=== PATIENT | female | born 1955 | race Caucasian/White ===

== ENCOUNTER → 2016-11-22 | Outpatient (CLI) | payer OTHER ==
[~2016-11-22] VITALS: Ht 175.3 cm; Wt 102.8 kg
[~2016-11-22] MED LIST: ACIPHEX 20 MG T20 MG PO; ALIGN4 MG PO; CYMBALTA60 MG PO; DEXILANT60 MG PO; DOXYCYCLINE HYC20 MG PO; GLUCOPHAGE XR500 M1 PO; HYDROCODON-ACE1 EAC1 PO; HYDROCODON-ACE1 EAC8 PO; LOVASTAT20 PO; NEXIUM40 MG PO; NORCO 10-325 T1 EACH PO; NORCO 7.5-3251 EACH PO; OMEPRAZOLE40 MG PO; RELAFEN500 MG PO; THEO-24400 MG PO; TRIAMTERENE-HC1 EAC2 PO; TRIAMTERENE/HCT1 CA1 PO; VICODIN 5-5001 EACH PO
--- NOTE | ~2016-11-22 | HPC ---
[facility] [place] [address] PAIN MANAGEMENT CONSULTATION Name: MARCEL SHEN Room #: REG Alton Mcgregor.#: [id number] Admission: 11/22/16 Attend Phys: Thomas Casanova DO Discharge: Date of : 53 Report #: [id number] THIS REPORT FOR: //name// CC: Dee Casanova The patient is a very pleasant 61-year-old female being treated for lumbar radiculopathy, axial back pain requiring complex medication management. She has been stable on baseline narcotic medications, fairly infrequent p.r.n. use of hydrocodone 7.5/325. Last seen in the pain clinic on 09/19/2016, for medication renewal. She prior had a single lumbar epidural injection back in December 2015. Prior to that, she had a single epidural injection back in May 2015. She returns to pain clinic today noting that her right lumbar radicular pain has recurred, it is in the right L4 pattern. We reviewed her MRI findings noting lumbar radiculopathy, neural foraminal stenosis at multiple levels, most significant of the right at L3-L4 and left L5-S1. ASSESSMENT: Symptomatic lumbar radiculopathy by clinical exam and history. RECOMMENDATION: Lumbar epidural injection under fluoroscopy today. Continue current medications unchanged. Follow up as needed. PROCEDURE: Lumbar epidural injection under fluoroscopy. PROCEDURE NOTE: After both written and informed consent to include risk of spinal cord damage, increased pain, weakness and dural puncture, the patient was taken to the fluoroscopy suite, placed in the prone position. After sterile prep and drape, a skin wheal with lidocaine was raised. A 22-gauge epidural Tuohy needle was inserted in the midline at L4-L5 with good loss to resistance. Negative aspiration for cerebrospinal fluid or blood was noted. Then 1 mL of Omnipaque under biplanar fluoroscopy showed good spread within the epidural space. This was followed with 80 mg of triamcinolone plus 1 mL of 1.5% preservative-free Xylocaine, 0.5 mL Xylocaine was then injected to flush the needle; it was removed. The patient was monitored for an appropriate period of time and discharged in good and stable condition. By: [id number] Thomas Casanova DO /nt
[2016-11-22 10:53] VITALS: BP 119/70
== END ==
LOC: PAIN 11-15 07:13
DX: M54.16 Radiculopathy, lumbar region (principal)

== ENCOUNTER → 2016-12-19 | Outpatient (CLI) | payer OTHER ==
[~2016-12-19] VITALS: Ht 175.3 cm; Wt 104.4 kg
--- NOTE | ~2016-12-19 | HPC ---
[facility] [place] [address] PAIN MANAGEMENT CONSULTATION Name: MARCEL SHEN Room #: [facility] [id number] Admission: 12/19/16 Attend Phys: Thomas Casanova DO Discharge: Date of : 53 Report #: [id number] THIS REPORT FOR: //name// CC: Dee Casanova The patient is a 61-year-old female last seen in the pain clinic 03/24/2017. We did an epidural injection at that time. The patient returns to pain clinic today noting overall incremental improvement of baseline pain, notes the injection did provide 50% relief, though typically she has had better relief for longer periods of time. She notes pain has recurred at the 2/10 presently, but diffuse tenderness across the low back and right leg. Physical exam is relatively unchanged from last visit. ASSESSMENT: Symptomatic lumbar radiculopathy by clinical exam and history. RECOMMENDATIONS: 1. Repeat epidural injection under fluoroscopy today. 2. We talked about therapeutic options, may benefit from a spinal cord stimulator. I would want to get newer MRI. Her last MRI is somewhat dated from August 2012. We will also want to get a surgical opinion to see if there is any surgically correctable pathology before moving forward with SCS. Marcel does incidentally note some pain in the left knee with some with trace ballotable edema. I referred her to [facility]. ASSESSMENT: Symptomatic lumbar radiculopathy. PROCEDURE: Lumbar epidural injection under fluoroscopy. PROCEDURE NOTE: After both written and informed consent to include risk of spinal cord damage, increased pain, weakness and dural puncture, the patient was taken to the fluoroscopy suite, placed in the prone position. After sterile prep and drape, a skin wheal with lidocaine was raised. A 22-gauge epidural Tuohy needle was inserted in the midline at L4-5 with good loss to resistance. Negative aspiration for cerebrospinal fluid or blood was noted. Then 1 mL of Omnipaque under biplanar fluoroscopy showed good spread within the epidural space. This was followed with 80 mg of triamcinolone plus 1 mL of 1.5% preservative-free Xylocaine, 0.5 mL Xylocaine was then injected to flush the needle; it was removed. The patient was monitored for an appropriate period of time and discharged in good and stable condition. <ELECTRONICALLY SIGNED> By: Thomas Casanova DO 12/20/16 1308 [id number] Thomas Casanova DO /nt
[2016-12-19 11:21] VITALS: BP 147/78
== END | disposition home or self-care (01) ==
LOC: PAIN 07:27
DX: M54.16 Radiculopathy, lumbar region (principal); G89.29 Other chronic pain

== ENCOUNTER → 2017-04-14 | Outpatient (CLI) | payer OTHER | LOC: PAIN 07:10 | DX: M54.16 Radiculopathy, lumbar region (principal) ==

== ENCOUNTER → 2017-06-13 | Outpatient (CLI) | payer OTHER ==
[~2017-06-13] VITALS: Ht 175.3 cm; Wt 102.1 kg
[~2017-06-13] MED LIST changes: +UNISOM50 MG PO; +ZANTAC 150MG T150 M1 PO
--- NOTE | ~2017-06-13 | HPC ---
[facility] [place] [address] PAIN MANAGEMENT CONSULTATION Name: MARCEL SHEN Room #: REG [facility] [id number] Admission: 06/13/17 Attend Phys: hTomas Casanova DO Discharge: Date of : 53 Report #: [id number] THIS REPORT FOR: //name// CC: Dee Casanova HISTORY OF PRESENT ILLNESS: The patient is a 62-year-old female well known to the pain clinic, typically treated for lumbar radiculopathy status post decompressive laminectomy. He has had lumbar epidural injections in November or December with greater than 60% improvement in her pain for a number of months. Uses rare hydrocodone 7.5/325, given 75 tablets back in March, still has about 30 tablets left. She returns to pain clinic today noting pain has recurred in the right low back. She has been lifting and caring for her grandchild. Rates pain at 3 on a VAS today, but it has become problematic to the point that it interferes with function and gets significantly worse with activity. She has numbness and tingling in the right leg. Some paresthesias down into the foot. PHYSICAL EXAMINATION: Shows a 62-year-old female, BMI is 33.2 kilograms per meter squared. Vital signs stable as noted in the EMR. Rises from chair using armrest. Modestly positive straight leg raise on the right, antalgic gait, slight decreased right hip flexion strength. We reviewed the MRI findings somewhat dated from 2012, noting neural foraminal stenosis at multiple levels, most significant on the left at L5-S1, on the right at L3-L4. Status post postoperative changes at L3-L4. ASSESSMENT: Symptomatic lumbar radiculopathy by clinical exam and history. RECOMMENDATIONS: Epidural injection under fluoroscopy today; renew hydrocodone 5/325, limit 75 tablets over the counter anti-inflammatories. Follow up simply as needed. PROCEDURE: Lumbar epidural injection under fluoroscopy. PROCEDURE NOTE: After both written and informed consent to include risk of spinal cord damage, increased pain, weakness and dural puncture, the patient was taken to the fluoroscopy suite, placed in the prone position. After sterile prep and drape, a skin wheal with lidocaine was raised. A 22-gauge epidural Tuohy needle was inserted in the midline at L4-L5 with good loss to resistance. Negative aspiration for cerebrospinal fluid or blood was noted. Then 1 mL of Omnipaque under biplanar fluoroscopy showed good spread within the epidural space. This was followed with 80 mg of triamcinolone plus 1 mL of 1.5% preservative-free Xylocaine, 0.5 mL Xylocaine was then injected to flush the [address] [address] PAIN MANAGEMENT CONSULTATION Name: MARCEL SHEN Room #: REG HALI Kelly#: [id number] Admission: 06/13/17 Attend Phys: Thomas Casanova DO Discharge: Date of : 53 Report #: [id number] needle; it was removed. The patient was monitored for an appropriate period of time and discharged in good and stable condition. <ELECTRONICALLY SIGNED> By: Thomas Casanova DO 06/16/17 0929 [id number] Thomas Casanova DO /nt
[2017-06-13 14:07] VITALS: BP 124/86
== END ==
LOC: PAIN 10:37
DX: M54.16 Radiculopathy, lumbar region (principal); Z79.899 Other long term (current) drug therapy

== ENCOUNTER → 2017-07-17 | Outpatient (CLI) | payer OTHER ==
[~2017-07-17] VITALS: Ht 175.3 cm; Wt 103.8 kg
--- NOTE | ~2017-07-17 | HPC ---
[facility] [place] [address] PAIN MANAGEMENT CONSULTATION Name: MARCEL SHEN Room #: REG [facility]#: [id number] Admission: 07/17/17 Attend Phys: Thomas Casanova, DO Discharge: Date of : 53 Report #: [id number] THIS REPORT FOR: //name// CC: Dee Casanova The patient is a pleasant 62-year-old female, long known to the pain clinic, typically treated for lumbar radiculopathy, has had 3 lumbar epidural injections in November, December, and then injection on 06/13/2017. She uses hydrocodone 7.5/325 rarely, prescription given in March 2017, lasted through May, prescription 06/13/2017 for hydrocodone 7.5/325, dispense 75 tablets still has greater than 50% of the tablets left. She notes she was doing well after the epidural injections until she was cleaning house and cooking for Thanksgiving and putting on her Frandy decorations with a lot of bending and lifting, she has acute exacerbation of axial back pain. 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 She notes the pain is in the low back, left greater than right, does not have any radicular component. She does note the pain is significant to the point that it is interfering with function. It is 4 on a VAS at baseline, exacerbated with bending, standing, walking and lifting. PHYSICAL EXAMINATION: Shows a 62-year-old female, BMI is modestly elevated at 33.8 kg/m2. Vital signs are stable as noted in the EMR. Rises from chair using armrest. Lumbar flexion is good. Very tender over the SI joints. Lower extremity strength is symmetric. Straight leg raise is negative. Tenderness over the SI joints with positive Gaenslen's test, positive Lv test and positive distraction. Provocative test noted with pain bilaterally. MRI quite dated from 2012, notes postoperative changes of the lumbar spine with multilevel facet degenerative changes. ASSESSMENT: 1. Symptomatic lumbar radiculopathy, status post decompressive laminectomy by history, again doing well status post last epidural injection in May. 2. Acute exacerbation of sacroiliac mediated pain, lumbosacral spondylosis. RECOMMENDATION: 1. Continue physical therapy exercises, which the patient had received from the therapist some years ago. 2. Bilateral SI joint injection under fluoroscopy today. 3. Follow up simply as needed. PROCEDURE: Bilateral SI joint injection under fluoroscopy. PROCEDURE NOTE: After written and informed consent was obtained including risk of infection, nerve trauma, increased pain and weakness, the patient wishes to proceed. The patient was taken to the fluoroscopy suite, [place] [address] PAIN MANAGEMENT CONSULTATION Name: HERMELINDAMARCEL Room #: REG CL Leticia#: [id number] Admission: 07/17/17 Attend Phys: Thomas Casanova DO Discharge: Date of : 53 Report #: [id number] position. The sacroiliac joint was visualized using the C-arm, turned in an oblique fashion to align the joint. The skin overlying the area was cleansed with ChloraPrep. Skin wheal with Xylocaine was raised. A 22 gauge spinal needle was inserted into the inferior aspect of the joint. A low volume extension tubing was then attached to the needle after the stylet was removed. Negative aspiration was accomplished. A 1 mL of Omnipaque was injected which showed spread within the SI joint. 40 mg triamcinolone plus 2 mL of 0.5% preservative-free bupivacaine was injected into the joint. Needle was removed. Attention was then turned to the contralateral joint which was treated in an identical fashion. After both needles were removed the prep was washed off. Two Band-Aids were applied over the puncture sites. The patient was allowed to ambulate to the recovery room, monitored for an appropriate period of time, discharged in good and stable condition. <ELECTRONICALLY SIGNED> By: Thomas Casanova DO 07/21/17 0759 [id number] Thomas Casanova DO /nt
[2017-07-17 11:30] VITALS: BP 116/78
== END | disposition home or self-care (01) ==
LOC: PAIN 06:40
DX: M53.3 Sacrococcygeal disorders, not elsewhere classified (principal); G89.29 Other chronic pain; M47.897 Other spondylosis, lumbosacral region; Z79.891 Long term (current) use of opiate analgesic; Z98.890 Other specified postprocedural states; Z79.899 Other long term (current) drug therapy

== ENCOUNTER → 2018-08-14 | Outpatient (CLI) | payer OTHER, MEDICARE ==
[~2018-08-14] VITALS: Ht 177.8 cm; Wt 100.3 kg
--- NOTE | ~2018-08-14 | HPC ---
[facility] [place] [address] PAIN MANAGEMENT CONSULTATION Name: MARCEL SHEN Room #: REG [facility] [id number] Admission: 08/14/18 Attend Phys: Nik Yan MD Discharge: Date of : 53 Report #: [id number] THIS REPORT FOR: //name// CC: Dee Yan DATE OF SERVICE: 08/16/2018 CHIEF COMPLAINT: Here for an epidural injection. HISTORY: The patient is a 63-year-old female who has been followed in the pain clinic. As you may recall, she has a history of lumbar radicular pain. She returns today with complaints of pain and discomfort in the back with radiation down to her leg. She also has a history of left knee pain. She did have an injection in the left knee noted some benefit from that. She has had a right knee replacement. She has undergone epidural steroid injections in the past with greater than 50% benefit. She has also been treated for sacroiliac joint dysfunction with injections. Those were beneficial as well. At this point, she continues to have pain and discomfort in the anterior portion of her right leg and L3-L4 distribution. She would like to have an injection to help with that pain and discomfort. ALLERGIES: No known drug allergies. CURRENT MEDICATIONS: Hydrocodone 7.5 mg 1 p.o. b.i.d., Zanaflex 150 mg, omeprazole 40 mg, metformin 500 mg, triamterene/hydrochlorothiazide 37.5/25, lovastatin 20 mg, 40 mg total, Align 4 mg capsules. PAIN CLINIC ASSESSMENT/PQRS: 1. History of osteoarthritis. The patient has some arthritic changes involving her back as well as in her knees and has had a knee replacement on the right. Has some complaints of arthritic changes in her hands as well. She is not being treated for rheumatoid arthritis. 2. Height 5 feet 10 inches, weight 221 pounds, BMI is 31.7. 3. Vital signs: Blood pressure 136/88, pulse 82, respiratory rate 16, room air saturation 98%. 4. Pain intensity 08/27. 5. Fall risk. The patient has not fallen in the last 3 months. 6. Blood thinner. The patient is not on a blood thinning medication. 7. Hypertension. The patient is being treated for hypertension. 8. Opioids greater than 6 weeks. The patient received medication from one source, the pain clinic. 9. Risk assessment tool, low for opioid use. 10. Functional assessment tool 51/70. 11. Recreational drug use. The patient denies use of recreational drugs. 12. Tobacco: The patient has never smoked. [address] [address] PAIN MANAGEMENT CONSULTATION Name: MARCEL SHEN [facility] #[facility] [id number] Admission: 08/14/18 Attend Phys: Nik Yan MD Discharge: Date of : 53 Report #: [id number] 13. Alcohol. The patient drinks alcoholic beverages on occasion. PHYSICAL EXAMINATION: GENERAL: The patient is a well-developed, well-nourished white female. Appears her stated age. She is alert and oriented x 3. Her affect is appropriate. Speech is fluent. HEENT: Normocephalic, atraumatic. Extraocular muscles intact. Sclerae nonicteric. Mucous membranes moist. NECK: Without adenopathy or JVD. Upper extremity muscle strength is judged to be 5/5 for the major muscle groups without any neurologic deficits. HEART: Regular rate. S1, S2. MUSCULOSKELETAL: Without significant scoliosis, kyphosis or lordosis. The patient does have some pain and discomfort involving her left knee. Has some low back pain with pain that is radiating down the right side of her leg in the L3-4/L2-3 dermatomal distribution. The patient is walking with a somewhat antalgic gait. IMPRESSION: Right L3-L4/L2-L3 radiculopathy. RECOMMENDATIONS: We discussed treatment options with the patient. Risks and benefits of an epidural steroid injection were again discussed. Possible complications of the procedure, which could include but are not limited to infection, worsening of pain, no improvement in pain, nerve damage with paralysis, spinal headache were discussed. The patient feels that she would like to proceed with an injection. She has gleaned good relief in the past. She would like to proceed. PROCEDURE NOTE: The patient was taken to the procedure area. She was assisted in getting on the examination table. Her pillow was placed on her abdomen to bolster improved positioning. Fluoroscopy using anterior, posterior as well as lateral viewing were implemented. The patient's back was sterilely prepped in the L3-L4 area. A 25-gauge needle was then used to inject local anesthetic. A 17-gauge Tuohy with loss of resistance technique was used to gain access to the epidural space. There was no CSF, heme or paresthesia. A total of 80 mg Depo-Medrol, 40 mg triamcinolone and 2 mL of 0.25% bupivacaine was injected. The patient tolerated the procedure well. There were no complications. Total of 10 seconds fluoroscopy time was used. Follow up in the future as needed. She will continue with her current medical regimen of [place] 7.5 mg 1 p.o. b.i.d. as needed. We would like to thank you for letting us participate in her care. We hope she continues to improve. By: [id number] Nik Yan MD /alejandra
[2018-08-14 08:32] VITALS: BP 136/88
--- NOTE | 2018-08-14 08:36 | NUR ---
Pain Clinic Assessment: 1. History of Osteoarthritis: SPINE HANDS Right Lower Extremity Left Lower Extremity History of Rheumatoid Arthritis: 2. Height: 5 ft. 10 in. 177.8 cm. Weight: 221.2 lb. oz. 100.336 kg. Patient's BMI: 31.7 3. Vital Signs: BP: 136/88 Pulse: 82 Resp: 16 Temp: 02 Sat: 98 ECG Mon: 4. Pain Intensity: 1 5. Fall Risk: Dizziness: N Needs help standing or walking: N Fallen in the last 3 months: N Fall risk comments: 6. Patient on Blood Thinner: None 7. History of Hypertension: N 8. Opioid Therapy greater than 6 weeks: Y Opiate Contract Signed: 09/19/15 9. Risk Assessment Tool Provided: Brenda/CHUN 10. Functional Assessment Tool: 11. Recreational Drug Use: Never Drug Type: Tobacco Use: Never Smoker Tobacco Type: Amount or Packs/day: How Many Years: Alcohol Use: Yes Frequency: Special Occasions Quant:
== END | disposition home or self-care (01) ==
LOC: PAIN 07:39
DX: M54.16 Radiculopathy, lumbar region (principal); M17.0 Bilateral primary osteoarthritis of knee; I10 Essential (primary) hypertension; Z96.652 Presence of left artificial knee joint; Z98.890 Other specified postprocedural states; Z79.899 Other long term (current) drug therapy; Z79.891 Long term (current) use of opiate analgesic

== ENCOUNTER → 2018-11-11 | Outpatient (CLI) | payer OTHER, MEDICARE ==
[~2018-11-11] VITALS: Ht 175.3 cm; Wt 101.6 kg
[~2018-11-11] MED LIST changes: +MEDROLDOSEPACK PO
--- NOTE | ~2018-11-11 | HPC ---
[facility] [place] [address] PAIN MANAGEMENT CONSULTATION Name: MARCEL SHEN Room #: REG [facility] [id number] Admission: 11/11/18 ������������������ Attend Phys: Nik Yan MD Discharge: ������������������ Date of : 53 Report #: [id number] THIS REPORT FOR: //name// CC: Dee Yan DATE OF SERVICE: 11/11/2018 CHIEF COMPLAINT: Low back pain that goes down into both buttocks and down into both legs and thigh. "I would like to get an injection." HISTORY: The patient is a 63-year-old female who has been seen in the Pain Clinic because of chronic pain. She has undergone epidural steroid injections. She returns today with pain that is radiating down into her legs. She has had a history of left knee pain. She has undergone the injections in her knees and found those beneficial. She has had a right knee replacement. At this juncture, she is having greater pain in her back. She has received greater than 50% benefit with epidural steroid injections in the past. She also has a history of sacroiliac joint dysfunction. She would like to proceed with an injection and has returned today for the treatment. ALLERGIES: No known drug allergies. CURRENT MEDICATIONS: Hydrocodone 7.5 mg 1 p.o. b.i.d., Zanaflex 150 mg, omeprazole 40 mg, metformin 500 mg, triamterene/hydrochlorothiazide 37.5/25, lovastatin 20 mg, 40 mg total, and Align 4 mg, PAIN CLINIC ASSESSMENT/PQRS: 1. The patient has some arthritic changes involving her back as well as her knees and has had knee replacement on the right. The patient has some complaints of arthritic changes in her hands. She has not been treated for rheumatoid arthritis. 2. Height 5 feet 10 inches, weight is 224 pounds, BMI is 33.1. 3. Vital Signs: Blood pressure 128/74, pulse 71, respiratory rate 18, room air saturation 100%. 4. Pain intensity 3-/10 after a fall risk. The patient has not fallen in the last 3 months. 5. Blood thinner. The patient is not on a blood thinning medication. 6. Hypertension. The patient has not been treated for hypertension. 7. Opioids greater than 6 weeks. The patient is being treated with opioid medication. 8. Risk assessment tool, low for opioid use. 9. Functional assessment tool 51/70. 10. Recreational drug use. The patient denies use of recreational drugs. 11. Tobacco: The patient never smoked. 12. Alcohol: The patient drinks 1 alcoholic beverage on occasion. [address] [address] PAIN MANAGEMENT CONSULTATION Name: HERMELINDAMARCEL Room #: REG [facility]..#: [id number] Admission: 11/11/18 ������������������ Attend Phys: Nik Yan MD Discharge: ������������������ Date of : 53 Report #: [id number] PHYSICAL EXAMINATION: GENERAL: The patient is a well-developed, well-nourished white female. Appears her stated age. She is alert and oriented x 3. Her affect is appropriate. Speech is fluent. HEENT: Normocephalic, atraumatic. Extraocular eye muscles are intact. Sclerae nonicteric. Mucous membranes are moist. NECK: Without adenopathy or JVD. HEART: Regular rate. S1, S2. MUSCULOSKELETAL: Without significant scoliosis, kyphosis or lordosis. The patient does have some pain and discomfort in her left knee. Has pain in the lower portion of her back. The pain is radiating down to the right side of her leg in the L4-L5 dermatomal distribution and has had some in the L1-L2 dermatomal distribution. She notes that walking is somewhat problematic. She walks with an antalgic gait. IMPRESSION: L3-L4 and L2-L3 radiculopathy. RECOMMENDATIONS: We will proceed with an epidural steroid injection at the L3-L4 interspace on the right side. The patient complains of pain that is most problematic today at this level. PROCEDURE NOTE: The patient was taken to the procedure area. She was assisted in getting on the examination table. We already discussed the risks and benefits of the procedure. She would like to proceed. PROCEDURE NOTE: The patient was placed in the prone position. Fluoroscopy was used to identify the L3-L4 interspace. Her back had been sterilely prepped with Betadine and infiltrated with 0.25% bupivacaine using a right paramedian approach. A 0.25% bupivacaine was infiltrated at that juncture. At the L3-L4 space, a 17-gauge Tuohy with loss of resistance technique using a paramedian approach was undertaken. A total of 80 mg Depo-Medrol, 40 mg triamcinolone and 2 mL of 0.25% bupivacaine was injected. The patient tolerated the procedure well. There were no complications. Total of ____ seconds fluoroscopy time was used. The patient's pain decreased to 3 at the time of discharge. She will follow up in the future as needed. We would like to thank you for letting us participate in her care. We hope she continues to improve. ��������������������������������������������� ���������������������������������������� By: ��������������������������������������������� [id number] Nik Yan MD /nt
[2018-11-11 09:10] VITALS: BP 128/74
--- NOTE | 2018-11-11 09:24 | NUR ---
Pain Clinic Assessment: 1. History of Osteoarthritis: SPINE HANDS Right Lower Extremity Left Lower Extremity History of Rheumatoid Arthritis: 2. Height: 5 ft. 9 in. 175.3 cm. Weight: 224.0 lb. oz. 101.606 kg. Patient's BMI: 33.1 3. Vital Signs: BP: 128/74 Pulse: 71 Resp: 18 Temp: 02 Sat: 100 ECG Mon: 4. Pain Intensity: 3-4 5. Fall Risk: Dizziness: N Needs help standing or walking: N Fallen in the last 3 months: Y Fall risk comments: 6. Patient on Blood Thinner: None 7. History of Hypertension: N 8. Opioid Therapy greater than 6 weeks: Y Opiate Contract Signed: 09/19/15 9. Risk Assessment Tool Provided: Brenda/CHUN 10. Functional Assessment Tool: 11. Recreational Drug Use: Never Drug Type: Tobacco Use: Never Smoker Tobacco Type: Amount or Packs/day: How Many Years: Alcohol Use: Yes Frequency: Daily Quant: 1
== END | disposition home or self-care (01) ==
LOC: PAIN 06:47
DX: M54.16 Radiculopathy, lumbar region (principal); Z68.33 Body mass index [BMI] 33.0-33.9, adult; I10 Essential (primary) hypertension; F11.20 Opioid dependence, uncomplicated; Z79.899 Other long term (current) drug therapy

== ENCOUNTER → 2018-11-25 | Outpatient (CLI) | payer OTHER, MEDICARE ==
[~2018-11-25] VITALS: Ht 177.8 cm; Wt 99.5 kg
--- NOTE | ~2018-11-25 | HPC ---
[facility] [place] [address] PAIN MANAGEMENT CONSULTATION Name: MARCEL SHEN Room #: REG [facility] Meche.#: [id number] Admission: 11/25/18 ������������������ Attend Phys: Nik Yan MD Discharge: ������������������ Date of : 53 Report #: [id number] THIS REPORT FOR: //name// CC: Dee Yan DATE OF SERVICE: 11/25/2018 CHIEF COMPLAINT: Right low back pain. FOLLOWUP HISTORY: The patient is a 63-year-old female who has been seen in the pain clinic. She suffers from chronic pain. She has undergone epidural steroid injections in the past. She returns today indicating that her pain has been intense a few days ago. She now is having less pain and discomfort. She reports 6 days ago that her pain in the lower back area was quite problematic. She has noticed an improvement at this juncture. A few days ago was about an 8-9/10. Now, it is a 1/10. Still has some burning discomfort in her low back area with some numbness, tingling sensation. The back pain was exacerbated with bending, standing, walking and other activities. Feels that it improves with use of medications, changes of position such as lying down, use of ice packs and "getting off her feet." She feels that today things have improved. She was thinking that an injection might be helpful when she made the appointment. Feels now that things have calmed down somewhat. She is not sure that treatment is necessary today. ALLERGIES: No known drug allergies. MEDICATIONS: Hydrocodone 7.5 mg 1 p.o. b.i.d., Zanaflex 150 mg, omeprazole 40 mg, metformin 500 mg, triamterene/hydrochlorothiazide 37.5/25, lovastatin 20 mg, total of 40 mg daily and Align 4 mg. PAIN CLINIC ASSESSMENT AND PQRS: 1. The patient has some arthritic changes involving her back as well as in her knees. She has had knee replacement on the right. Some arthritic changes in her hands. She is not being treated for rheumatoid arthritis. 2. Height 5 feet 10 inches, weight 219 pounds, BMI is 31.5. 3. Vital signs: Blood pressure 124/79, pulse 65, respiratory rate 20, room air saturation 99%. 4. Pain intensity 08/27. 5. Fall risk. The patient has not fallen in the last 3 months. 6. Blood thinner. The patient is not on a blood thinning medication. 7. Hypertension. The patient is not being treated for hypertension. 8. Opioids greater than 6 weeks. The patient is being treated with opioid medications. 9. Risk assessment tool, low for opioid use. 10. Functional assessment tool 51/70. [address] [address] PAIN MANAGEMENT CONSULTATION Name: HERMELINDAMARCEL Room #: REG [facility]#: [id number] Admission: 11/25/18 ������������������ Attend Phys: Nik Yan MD Discharge: ������������������ Date of : 53 Report #: [id number] 11. Recreational drug use. The patient denies use of recreational drugs. 12. Tobacco: The patient has never smoked. 13. Alcohol. The patient drinks 1 alcoholic beverage on occasion. PHYSICAL EXAMINATION: GENERAL: The patient is a well-developed, well-nourished white female. Appears her stated age. She is alert and oriented x 3. Affect is appropriate. Speech is fluent. HEENT: Normocephalic, atraumatic. Extraocular eye muscles intact. Sclerae nonicteric. Mucous membranes are moist. NECK: Without adenopathy or JVD. HEART: Regular rate. S1, S2. MUSCULOSKELETAL: Without significant scoliosis, kyphosis or lordosis. The patient has had some pain and discomfort in her left knee. Has had some increased pain in her low back. This is improved at this juncture. History of L4-L5 dermatomal pain as well as L1-L2 dermatomal pain. Gait is not problematic today. IMPRESSION: 1. Improved back pain. Has had a history of L3-L4 and L2-L3 radicular pain. Overall, things have improved. 2. Hypertension. 3. Asthma. 4. Colon problems. 5. History of ulcers. RECOMMENDATIONS: We discussed treatment options with the patient. At this juncture, she feels that things are going reasonably well. The pain was quite problematic few days ago when she made the appointment. At this juncture, things have settled down. At this juncture, she will continue with her current medical regimen. She will call us if she has any concerns. We would like to thank you for letting us participate in her care. We hope she continues to do well as time goes on. ��������������������������������������������� ���������������������������������������� By: ��������������������������������������������� [id number] Nik Yan MD /[facility]
[2018-11-25 13:32] VITALS: BP 124/79
--- NOTE | 2018-11-25 13:52 | NUR ---
Pain Clinic Assessment: 1. History of Osteoarthritis: SPINE HANDS Right Lower Extremity Left Lower Extremity History of Rheumatoid Arthritis: Not Applicable 2. Height: 5 ft. 10 in. 177.8 cm. Weight: 219.4 lb. oz. 99.519 kg. Patient's BMI: 31.5 3. Vital Signs: BP: 124/79 Pulse: 65 Resp: 20 Temp: 02 Sat: 99 ECG Mon: 4. Pain Intensity: 1 5. Fall Risk: Dizziness: N Needs help standing or walking: N Fallen in the last 3 months: N Fall risk comments: 6. Patient on Blood Thinner: None 7. History of Hypertension: N 8. Opioid Therapy greater than 6 weeks: Y Opiate Contract Signed: 09/19/15 9. Risk Assessment Tool Provided: Brenda/CHUN 10. Functional Assessment Tool: 11. Recreational Drug Use: Never Drug Type: Tobacco Use: Never Smoker Tobacco Type: Amount or Packs/day: How Many Years: Alcohol Use: Yes Frequency: Weekly Quant: 1-2
== END ==
LOC: PAIN 07:15
DX: M54.5 Low back pain (principal); G89.29 Other chronic pain; I10 Essential (primary) hypertension; J45.909 Unspecified asthma, uncomplicated; K63.9 Disease of intestine, unspecified; Z79.899 Other long term (current) drug therapy

== ENCOUNTER → 2018-12-30 | Outpatient (CLI) | payer OTHER, MEDICARE ==
[~2018-12-30] VITALS: Ht 177.8 cm; Wt 100.3 kg
--- NOTE | ~2018-12-30 | HPC ---
[facility] [address] [place] [address] PAIN MANAGEMENT CONSULTATION Name: MARCEL SHEN Room #: REG [facility].#: [id number] Admission: 12/30/18 ������������������ Attend Phys: Nik Yan MD Discharge: ������������������ Date of : 53 Report #: [id number] THIS REPORT FOR: //name// CC: Dee Yan DATE OF SERVICE: 12/30/2018 FOLLOWUP COMPLAINT: "I am having a lot of pain on my left hip. I am unable to lie on it." HISTORY: The patient is a 63-year-old female who has been seen in the pain clinic. As you recall, she has a history of lumbar radiculopathy. She has undergone epidural steroid injections in the past. These injections have been beneficial. She has a different complaint today. She is still having some pain that radiates down into her leg. She is having pain on her left hip. She is unable to lay more than a few minutes on her left side. She states that she was tossing and turning over the past few nights. She is unable to get more than a couple of hours sleep because of the intensity of the pain. She denies any trauma to the left side. She notes that it is quite tender to palpation as well as touch. She feels that the pain is really quite problematic and she would like to undergo treatment. She has had sacroiliac joint problems and pain. Does not feel that this pain is similar to that discomfort. ALLERGIES: No known drug allergies. CURRENT MEDICATIONS: Hydrocodone 7.5 mg 1 p.o. b.i.d., Zantac 150 mg daily, omeprazole 40 mg daily, metformin 500 mg, triamterene/hydrochlorothiazide, 37.5 mg/25, losartan 40 mg daily, and Align 4 mg. PAIN CLINIC ASSESSMENT/PQRS: 1. History of osteoarthritis. The patient has some arthritic changes involving her back as well as has had knee replacement on the right. Has some arthritic changes in her hands. She is not being treated for rheumatoid arthritis. 2. Height 5 feet 10 inches, weight 221 pounds, BMI is 31.7. 3. Vital signs: Blood pressure 116/67, pulse 71, respiratory rate 16, room air saturation 97%. 4. Pain intensity 12/25. 5. Fall risk. The patient has not fallen in the last 3 months. 6. Blood thinner. The patient is not on a blood thinning medication. 7. Hypertension. The patient is not being treated for hypertension. 8. Opioids greater than 6 weeks. The patient has received her medications from the pain clinic on a monthly basis. 9. Risk assessment tool, low for opioid use. 10. Functional assessment tool 51/70. [place] [address] PAIN MANAGEMENT CONSULTATION Name: MARCEL SHEN Room #: REG CL Leticia#: [id number] Admission: 12/30/18 ������������������ Attend Phys: Nik Yan MD Discharge: ������������������ Date of : 53 Report #: [id number] 11. Recreational drug use. The patient denies use of recreational drugs. 12. Tobacco: The patient has never smoked. 13. Alcohol. The patient drinks on occasion. PHYSICAL EXAMINATION: GENERAL: The patient is a well-developed, well-nourished white female. Appears her stated age. She is alert and oriented x 3. Her affect is appropriate. Speech is fluent. HEENT: Normocephalic, atraumatic. Extraocular eye muscles intact. Sclerae nonicteric. Mucous membranes moist. NECK: Without adenopathy or JVD. HEART: Regular rate. S1, S2. MUSCULOSKELETAL: Without significant scoliosis, kyphosis or lordosis. EXTREMITIES: Upper extremity muscle strength judged to be 5/5 for the major muscle groups in the upper extremity. Lower extremity, the patient has some pain involving her left knee. Has pain that is radiating down into her back and down into the left leg. The patient has pain on the left hip. Palpation in the area of the left greater trochanteric bursa causes a reproduction of her pain and discomfort. Lying on her left side is difficult for more than a few minutes because of the pain and discomfort. IMPRESSION: 1. Left greater trochanteric bursitis. 2. History of decompressive laminectomy. 3. History of sacroiliac joint dysfunction. 4. Diabetes. 5. Hypertension. RECOMMENDATIONS: We discussed treatment options with the patient. Risks and benefits of a greater trochanteric injection were discussed. Possible complications of the procedure, which could include infection, worsening of pain, no improvement in pain, nerve damage, bleeding were discussed and the patient elects to proceed. PROCEDURE NOTE: The patient was taken to the procedure area. She was then assisted in getting on the examination table. She was placed in the right lateral decubitus position. Her left hip was in the position. Palpation in the trochanteric area near the bursa reproduce the patient's discomfort. After a number of attempts and localization of the most areas of most intense pain, her hip area was sterilely prepped with a chlorhexidine solution. It was allowed to dry. A second cleansing of the area with a chlorhexidine solution was undertaken. This was allowed to dry. A 25-gauge needle was then advanced into the area with local anesthetic, 0.25% bupivacaine to numb the area. A 25-gauge spinal needle was then advanced into the area of the discomfort. The patient states that this did reproduce her discomfort. Aspiration was negative. A total of 40 mg triamcinolone with 8 mL of 0.5% bupivacaine was injected. The [address] [address] PAIN MANAGEMENT CONSULTATION Name: HERMELINDAMARCEL VAZQUEZ Room #: REG [facility] Kelly#: [id number] Admission: 12/30/18 ������������������ Attend Phys: Nik Yan MD Discharge: ������������������ Date of : 53 Report #: [id number] patient tolerated the procedure well. There were no complications. She will follow up in the future as needed. We would like to thank you for letting us participate in her care. We hope she continues to improve. ��������������������������������������������� ���������������������������������������� By: ��������������������������������������������� [id number] Nik Yan MD /[facility]
[2018-12-30 13:39] VITALS: BP 116/67
--- NOTE | 2018-12-30 13:51 | NUR ---
Pain Clinic Assessment: 1. History of Osteoarthritis: SPINE HANDS Right Lower Extremity Left Lower Extremity History of Rheumatoid Arthritis: Not Applicable 2. Height: 5 ft. 10 in. 177.8 cm. Weight: 221.2 lb. oz. 100.336 kg. Patient's BMI: 31.7 3. Vital Signs: BP: 116/67 Pulse: 71 Resp: 16 Temp: 02 Sat: 97 ECG Mon: 4. Pain Intensity: 5 5. Fall Risk: Dizziness: N Needs help standing or walking: N Fallen in the last 3 months: N Fall risk comments: 6. Patient on Blood Thinner: None 7. History of Hypertension: N 8. Opioid Therapy greater than 6 weeks: Y Opiate Contract Signed: 09/19/15 9. Risk Assessment Tool Provided: Brenda/CHUN 10. Functional Assessment Tool: 11. Recreational Drug Use: Never Drug Type: Tobacco Use: Never Smoker Tobacco Type: Amount or Packs/day: How Many Years: Alcohol Use: Yes Frequency: Quant:
== END | disposition home or self-care (01) ==
LOC: PAIN 07:05
DX: M70.62 Trochanteric bursitis, left hip (principal); G89.29 Other chronic pain; I10 Essential (primary) hypertension; E11.9 Type 2 diabetes mellitus without complications; Z98.890 Other specified postprocedural states; Z79.891 Long term (current) use of opiate analgesic; Z79.899 Other long term (current) drug therapy

== ENCOUNTER → 2019-02-26 | Outpatient (CLI) | payer OTHER, MEDICARE ==
[~2019-02-26] VITALS: Ht 177.8 cm; Wt 97.6 kg
[~2019-02-26] MED LIST changes: +ESTRADIOL1 EAC7 TOP
--- NOTE | ~2019-02-26 | HPC ---
[facility] [address] [place] [address] PAIN MANAGEMENT CONSULTATION Name: MARCEL SHEN [id number] Admission: 02/26/19 ������������������ Attend Phys: Nik Yan MD Discharge: ������������������ Date of : 53 Report #: [id number] THIS REPORT FOR: //name// CC: Dee Yan DATE OF SERVICE: 02/26/2019 CHIEF COMPLAINT: Low back pain down into the hip and left leg. FOLLOWUP HISTORY: The patient is a 63-year-old female who has been seen in the pain clinic because of chronic back pain. As you may recall, she has history of lumbar radiculopathy. Epidural steroid injections have been beneficial. She returns today indicating that her pain has increased. She rates it as a 7/10. She noticed that over the last few days and increased soreness. She has been having pain, which is quite problematic. It is affecting her sleep. She is unable to sleep on her left side. She notes that her pain pills are less effective. She would like to undergo another epidural injection. As you may recall, she has had some problems with pain and headaches, spinal cord stimulator placed. This has been removed. She finds that the hydrocodone medication is helpful and would like to have renewal of her medication as well. ALLERGIES: No known drug allergies. CURRENT MEDICATIONS: Hydrocodone 7.5 mg 1 p.o. b.i.d., Zantac 150 mg daily, omeprazole 40 mg daily, metformin 500 mg, triamterene/hydrochlorothiazide 37.5/25, losartan 40 mg daily, Align 4 mg. PAIN CLINIC ASSESSMENT/PQRS: 1. History of osteoarthritis. The patient has some arthritic changes involving her back as well as had knee replacement on the right. She has some arthritic changes in her hands. She has not been treated for rheumatoid arthritis. 2. Height 5 feet 10 inches, weight 215 pounds, BMI is 30.9. 3. Vital signs: Blood pressure 116/70, pulse 66, respiratory rate 14, room air saturation 97%. Pain intensity, 02/24. 4. Fall history: The patient has not fallen in the last 3 months. 5. Blood thinner. The patient is not on a blood thinning medication. 6. Hypertension. The patient is not being treated for hypertension. 7. Opioids greater than 6 weeks. The patient received medication through the pain clinic. 8. Risk assessment tool, low for opioid use. 9. Functional assessment tool, 51/70. 10. Recreational drug use. The patient denies. 11. Tobacco: The patient has never smoked. 12. Alcohol. The patient drinks alcoholic beverages on occasion. [facility] [address] [place] [address] PAIN MANAGEMENT CONSULTATION Name: MARCEL SHEN Room #: [facility] [id number] Admission: 02/26/19 ������������������ Attend Phys: Nik Yan MD Discharge: ������������������ Date of : 53 Report #: [id number] PHYSICAL EXAMINATION: GENERAL: The patient is a well-developed, well-nourished white female. Appears her stated age. She is somewhat obese. Her affect is appropriate. Speech is fluent. HEAD, EYES, EARS, NOSE, AND THROAT: Normocephalic, atraumatic. Extraocular eye muscles intact. Sclerae nonicteric. Mucous membranes moist. NECK: Without adenopathy or JVD. HEART: Regular rate. S1, S2. MUSCULOSKELETAL: Without significant scoliosis, kyphosis or lordosis. EXTREMITIES: Upper extremity muscle strength is judged to be 5/5 for the major muscle groups in the upper extremity. The patient has some pain and discomfort involving her left knee. Has pain is radiating down her back and into the left leg. She has pain in the left hip. The patient has pain on the left greater trochanteric area with discomfort in the area of the bursa. Lying on left side for more than a few minutes and difficult. IMPRESSION: 1. Left greater trochanteric bursitis. 2. History of decompressive laminectomy. 3. History of sacroiliac joint dysfunction. 4. Diabetes. 5. Hypertension. RECOMMENDATIONS: We discussed treatment options with the patient. Risks and benefits of an epidural steroid injection were again discussed. They include but are not limited to infection, worsening pain, no improvement in pain and the patient elects to proceed. PROCEDURE NOTE: The patient was taken to the procedure area. She was then assisted in getting on the examination table. Her back was sterilely prepped with a Betadine solution. A 0.25% bupivacaine was infiltrated at the L3-L4 interspace. Aspiration was negative. A total of 80 mg Depo-Medrol, 40 mg of triamcinolone and 2 mL of 0.25% bupivacaine was injected. The patient tolerated the procedure well. There were no complications. She remained in the Pain Clinic for an appropriate amount of time. Her pain was 0 at the time of discharge. Total of about 10 seconds fluoroscopy time was used. We would like to thank you for letting us to participate in her care. We hope she continues to improve. ��������������������������������������������� ���������������������������������������� By: ��������������������������������������������� [id number] Nik Yan MD /[facility]
[2019-02-26 14:25] VITALS: BP 116/70
--- NOTE | 2019-02-26 14:51 | NUR ---
Pain Clinic Assessment: 1. History of Osteoarthritis: SPINE HANDS Right Lower Extremity Left Lower Extremity History of Rheumatoid Arthritis: Not Applicable 2. Height: 5 ft. 10 in. 177.8 cm. Weight: 215.2 lb. oz. 97.614 kg. Patient's BMI: 30.9 3. Vital Signs: BP: 116/70 Pulse: 66 Resp: 14 Temp: 02 Sat: 97 ECG Mon: 4. Pain Intensity: 7 5. Fall Risk: Dizziness: N Needs help standing or walking: N Fallen in the last 3 months: N Fall risk comments: 6. Patient on Blood Thinner: None 7. History of Hypertension: N 8. Opioid Therapy greater than 6 weeks: Y Opiate Contract Signed: 09/19/15 9. Risk Assessment Tool Provided: Brenda/CHUN 10. Functional Assessment Tool: 11. Recreational Drug Use: Never Drug Type: Tobacco Use: Never Smoker Tobacco Type: Amount or Packs/day: How Many Years: Alcohol Use: Yes Frequency: Quant:
== END | disposition home or self-care (01) ==
LOC: PAIN 06:48
DX: M54.16 Radiculopathy, lumbar region (principal); G89.29 Other chronic pain; Z79.891 Long term (current) use of opiate analgesic; Z79.899 Other long term (current) drug therapy

== ENCOUNTER → 2019-07-28 | Outpatient (CLI) | payer OTHER ==
[~2019-07-28] VITALS: Ht 177.8 cm; Wt 93.3 kg
[2019-07-28 14:29] VITALS: BP 122/71
--- NOTE | 2019-07-28 14:58 | NUR ---
Pain Clinic Assessment: 1. History of Osteoarthritis: SPINE HANDS Right Lower Extremity Left Lower Extremity History of Rheumatoid Arthritis: Not Applicable 2. Height: 5 ft. 10 in. 177.8 cm. Weight: 205.8 lb. oz. 93.350 kg. Patient's BMI: 29.5 3. Vital Signs: BP: 122/71 Pulse: 64 Resp: 16 Temp: 02 Sat: 97 ECG Mon: 4. Pain Intensity: 4 5. Fall Risk: Dizziness: N Needs help standing or walking: N Fallen in the last 3 months: N Fall risk comments: 6. Patient on Blood Thinner: None 7. History of Hypertension: Y 8. Opioid Therapy greater than 6 weeks: Y Opiate Contract Signed: 09/19/15 9. Risk Assessment Tool Provided: 0 10. Functional Assessment Tool: 11. Recreational Drug Use: Never Drug Type: Tobacco Use: Never Smoker Tobacco Type: Amount or Packs/day: How Many Years: Alcohol Use: Yes Frequency: Weekly Quant: GLASS WINE 2-3X WK
--- NOTE | 2019-08-04 13:08 | HPC ---
[facility] [address] [place] [address] PAIN MANAGEMENT CONSULTATION Name: MARCEL SHEN Room #: REG [facility].#: [id number] Admission: 07/28/19 Attend Phys: Nik Yan MD Discharge: Date of : 53 Report #: [id number] THIS REPORT FOR: //name// CC: Dee Yan DATE OF SERVICE: 07/28/2019 CHIEF COMPLAINT: Back pain with pain radiating down into the right leg. HISTORY: The patient is a 64-year-old female who has been seen in the pain clinic in the past because of lumbar radiculopathy. She has undergone epidural steroid injections. These have been fruitful. She returns today indicating that her pain has reoccurred. She is having pain that is radiating down the lower portion of her right leg and notes some sensory changes with numbness and tingling in the L4-L5 dermatomal distribution. She gleaned good relief after the last epidural steroid injection at L4-L5. She would like to proceed again today with another injection to help decrease her pain and discomfort. She did not have any complications after the injections. ALLERGIES: No known drug allergies. CURRENT MEDICATIONS: Hydrocodone 7.5 mg 1 p.o. b.i.d., Zanaflex 150 mg daily, omeprazole 40 mg, metformin 500 mg, triamterene/hydrochlorothiazide 37.5/25, losartan 40 mg, Align 4 mg. PAIN CLINIC ASSESSMENT/PQRS: 1. History of osteoarthritis. The patient has some arthritic changes involving her back as well as had had knee replacement on the right. She has some arthritic changes in her hand. She is not being treated for rheumatoid arthritis. 2. Height 5 feet 10 inches, weight is 205 pounds, BMI is 27.5. 3. Vital signs: Blood pressure 122/71, pulse 64, respiratory rate 16, room air saturation 97%. 4. Pain intensity 4-5/10. 5. Fall history: The patient has not fallen in the last 3 months. 6. Blood thinner. The patient is not on a blood thinning medication. 7. Hypertension. The patient is being treated for hypertension. 8. Opioids greater than 6 weeks. The patient receives medications from one source, the pain clinic. 9. Risk assessment tool, low for opioid use. 10. Functional assessment tool 41/. 11. Recreational drug use: The patient denies. 12. Tobacco: The patient has never smoked. 13. Alcohol: The patient occasionally drinks 2-3 glasses of wine weekly. [address] [address] PAIN MANAGEMENT CONSULTATION Name: MARCEL SHEN Room #: REG [facility]#: [id number] Admission: 07/28/19 Attend Phys: Nik Yan MD Discharge: Date of : 53 Report #: [id number] PHYSICAL EXAMINATION: GENERAL: The patient is a well-developed, well-nourished white female. Appears her stated age. She is alert and oriented x 3. Affect is appropriate. Speech is fluent. HEENT: Normocephalic, atraumatic. Extraocular eye muscles intact. Sclerae nonicteric. Mucous membranes are moist. NECK: Without adenopathy or JVD. MUSCULOSKELETAL: The patient without significant scoliosis, kyphosis or lordosis. The patient has pain and discomfort in lower portion of her back. She has pain that is radiating down to the right side in the L4-L5 dermatomal distribution to her knee. She did note some increased pain in the dorsum of her foot. She would like to proceed with an epidural steroid injection to help decrease the pain and discomfort. IMPRESSION: 1. Left low back pain/radiculopathy at the L4-L5 area. 2. History of trochanteric bursitis. 3. History of decompressive laminectomy. 4. History of sacroiliac joint dysfunction. 5. Diabetes. 6. Hypertension. RECOMMENDATIONS: We discussed treatment options with the patient. Risks and benefits of an epidural steroid injection were discussed. They include but are not limited to infection, worsening of pain, no improvement in pain, nerve damage, spinal headache and the patient elects to proceed. PROCEDURE NOTE: The patient was taken to the procedure area. She was then assisted in getting on examination table. Her back was sterilely prepped with a Betadine solution. At the L4-L5 interspace 0.25% bupivacaine was infiltrated. A 17-gauge Tuohy with loss of resistance technique was used to gain access to the epidural space. This area had been anesthetized using a 25-gauge needle and 0.25% bupivacaine. The patient tolerated the procedure well. There were no complications. She remained in the Pain Clinic for an appropriate amount of time. A total of 11 seconds fluoroscopy time was used. The patient was then taken to the procedure area. She remained for an appropriate amount of time. A script for medications of [place] 7.5 mg, 75 tablets have been provided. The patient will continue with her medications. She will monitor her blood glucose levels. We explained to her that one can note an increase in blood sugars after an epidural steroid injection because of the steroids themselves. She might also noticed an increase in white blood cell counts. The patient states that she is going to see her primary physician in the near future. [address] [address] PAIN MANAGEMENT CONSULTATION Name: MARCEL SHEN [id number] Admission: 07/28/19 Attend Phys: Nik Yan MD Discharge: Date of : 53 Report #: [id number] We would like to thank you for letting us participate in her care. We hope she continues to improve. <ELECTRONICALLY SIGNED> By: Nik Yan MD 08/04/19 1308 [id number] Nik Yan MD /nt
== END | disposition home or self-care (01) ==
LOC: PAIN 07:01
DX: M54.16 Radiculopathy, lumbar region (principal); G89.29 Other chronic pain; I10 Essential (primary) hypertension; Z98.890 Other specified postprocedural states; Z79.899 Other long term (current) drug therapy; Z79.891 Long term (current) use of opiate analgesic; Z96.651 Presence of right artificial knee joint

== ENCOUNTER → 2019-08-25 | Outpatient (CLI) | payer OTHER ==
[~2019-08-25] VITALS: Ht 175.3 cm; Wt 91.4 kg
[~2019-08-25] MED LIST changes: +TRAZODONE 150150 M1 PO
[2019-08-25 13:02] VITALS: BP 132/82
--- NOTE | 2019-08-25 13:11 | NUR ---
Pain Clinic Assessment: 1. History of Osteoarthritis: SPINE HANDS Right Lower Extremity Left Lower Extremity History of Rheumatoid Arthritis: Not Applicable 2. Height: 5 ft. 9 in. 175.3 cm. Weight: 201.6 lb. oz. 91.445 kg. Patient's BMI: 29.8 3. Vital Signs: BP: 132/82 Pulse: 66 Resp: 18 Temp: 02 Sat: 98 ECG Mon: 4. Pain Intensity: 5 5. Fall Risk: Dizziness: N Needs help standing or walking: N Fallen in the last 3 months: N Fall risk comments: 6. Patient on Blood Thinner: None 7. History of Hypertension: Y 8. Opioid Therapy greater than 6 weeks: Y Opiate Contract Signed: 09/19/15 9. Risk Assessment Tool Provided: 0 10. Functional Assessment Tool: 11. Recreational Drug Use: Never Drug Type: Tobacco Use: Never Smoker Tobacco Type: Amount or Packs/day: How Many Years: Alcohol Use: Yes Frequency: Quant:
== END | disposition home or self-care (01) ==
LOC: PAIN 06:52
DX: M54.16 Radiculopathy, lumbar region (principal); Z79.899 Other long term (current) drug therapy

== ENCOUNTER → 2019-12-08 | Outpatient (CLI) | payer OTHER ==
[~2019-12-08] VITALS: Ht 175.3 cm; Wt 94.3 kg
[~2019-12-08] MED LIST changes: +NEURONTIN 300300 M1 PO
[2019-12-08 08:57] VITALS: BP 118/76
--- NOTE | 2019-12-08 09:17 | NUR ---
Pain Clinic Assessment: 1. History of Osteoarthritis: SPINE HANDS Right Lower Extremity Left Lower Extremity History of Rheumatoid Arthritis: Not Applicable 2. Height: 5 ft. 9 in. 175.3 cm. Weight: 207.8 lb. oz. 94.258 kg. Patient's BMI: 30.7 3. Vital Signs: BP: 118/76 Pulse: 67 Resp: 16 Temp: 02 Sat: 100 ECG Mon: 4. Pain Intensity: 5 5. Fall Risk: Dizziness: N Needs help standing or walking: N Fallen in the last 3 months: N Fall risk comments: 6. Patient on Blood Thinner: None 7. History of Hypertension: Y 8. Opioid Therapy greater than 6 weeks: Y Opiate Contract Signed: 09/19/15 9. Risk Assessment Tool Provided: Opioid Risk Tool 10. Functional Assessment Tool: 11. Recreational Drug Use: Never Drug Type: Tobacco Use: Never Smoker Tobacco Type: Amount or Packs/day: How Many Years: Alcohol Use: Yes Frequency: Quant:
--- NOTE | 2019-12-15 08:03 | HPC ---
[facility] [place] [address] PAIN MANAGEMENT CONSULTATION Name: MARCEL SHEN Room #: REG [facility].#: [id number] Admission: 12/08/19 Attend Phys: Nik Yan MD Discharge: Date of : 53 Report #: [id number] THIS REPORT FOR: cc: Dee Garcia MD, Cabot L. MD Brown,Nik Arredondo MD ~ CC: Dee Yan DATE OF SERVICE: 12/08/2019 CHIEF COMPLAINT: Continued low back pain with pain in the right knee and down the buttocks and left hip. HISTORY: The patient is a 64-year-old female who has been followed in the pain clinic because of chronic pain. She has pain and discomfort, that is helped by epidural steroid injections. She has had a recurrence of her medication. She had the last injection in August and it lasts for about 3 months, it was 80-90% better. She has noticed that this pain now has started to recur. She rates it as a 5/10. Pain involves her buttocks on the left side with radiation down into her ankle. She would like to proceed with an epidural steroid injection when it is permitted. ALLERGIES: No known drug allergies. CURRENT MEDICATIONS: Hydrocodone 7.5 mg 1 p.o. b.i.d., Zanaflex 150 mg daily, omeprazole 40 mg, metformin 500 mg, bisoprolol/hydrochlorothiazide 37.5/25, losartan 40 mg, and Align 4 mg. PAIN CLINIC ASSESSMENT AND PQRS: 1. History of osteoarthritis. The patient has some osteoarthritic changes involving her low back as well as she has had knee replacements on the right. She has some arthritic changes in her hands. She is not being treated for rheumatoid arthritis. 2. Height 5 feet 9 inches, weight 207 pounds, BMI 30.7. 3. Vital signs: Blood pressure 118/76, pulse 67, respiratory rate 18, room air saturation 100%. 4. Pain intensity 12/25. 5. Fall risk. The patient has not fallen in the last 3 months. 6. Blood thinner. The patient is not on a blood thinning medication. 7. Hypertension. The patient is not being treated for hypertension, but does take a diuretic to help decrease swelling in her legs. 8. Opioid therapy. The patient receives medication from the pain clinic. 9. Risk assessment tool, low for opioid use. 10. Functional assessment tool 47/70. 11. Recreational drug use, the patient denies. [address] [address] PAIN MANAGEMENT CONSULTATION Name: MARCEL SHEN Room #: REG [facility]#: [id number] Admission: 12/08/19 Attend Phys: Nik Yan MD Discharge: Date of : 53 Report #: [id number] 12. Tobacco: The patient denies. 13. Alcohol: The patient drinks on a weekly basis. PHYSICAL EXAMINATION: GENERAL: The patient is a well-developed, well-nourished, somewhat obese white female, appears her stated age. She is alert and oriented x 3. Her affect is appropriate. Speech is fluent. HEENT: Normocephalic, atraumatic. Extraocular eye muscles intact. Sclerae nonicteric. Mucous membranes are moist. NECK: Without adenopathy or JVD. HEART: Regular. ABDOMEN: Nontender. MUSCULOSKELETAL: Upper extremity muscle strength judged to be 5/5 for the major muscle groups in the upper extremity. The patient without significant scoliosis, kyphosis or lordosis. The patient has pain and discomfort in lower portion of her back with pain that is radiating down the L4-L5 dermatomal distribution involving the left leg. She also has pain in her knee. IMPRESSION: 1. Low back pain with radicular pain in the L4-L5 dermatomal distribution, which improved by 80%-90% after last injection. 2. History of greater trochanteric bursitis. 3. History of decompression laminectomy. 4. History of sacroiliac joint dysfunction. 5. Diabetes. 6. Hypertension. RECOMMENDATIONS: We discussed treatment options with the patient. At this juncture, the COVID-19 pandemic is in full throttle. At this point, we will have the patient return to the pain clinic when it is appropriate to provide the injection. The patient has been informed of possible complications of a COVID infection. At this point, we will have the patient return in the future, at which time we would then proceed with an epidural steroid injection. A script for her medications of hydrocodone 7.5 mg 1 p.o. b.i.d. to t.i.d. have been provided. We would like to thank you for letting us participate in her care. She will also continue with gabapentin 300 mg 1 p.o. t.i.d. to help with pain control as well. We would like to thank you for letting us participate in her care. We hope she continues to improve. <ELECTRONICALLY SIGNED> By: Nik Yan MD 12/15/19 [id number] Nik Yan MD /nt
== END ==
LOC: PAIN 06:51
DX: M54.5 Low back pain (principal); M25.561 Pain in right knee; M25.552 Pain in left hip; I10 Essential (primary) hypertension; E11.9 Type 2 diabetes mellitus without complications; M96.1 Postlaminectomy syndrome, not elsewhere classified

== ENCOUNTER → 2020-01-12 | Outpatient (CLI) | payer OTHER ==
[~2020-01-12] VITALS: Ht 175.3 cm; Wt 92.1 kg
[~2020-01-12] MED LIST changes: +FLEXERIL PO
--- NOTE | ~2020-01-12 | HPC ---
[facility] [address] [place] [address] PAIN MANAGEMENT CONSULTATION Name: MARCEL SHEN Room #: REG [facility].#: [id number] Admission: 01/12/20 Attend Phys: Nik Yan MD Discharge: Date of : 53 Report #: [id number] THIS REPORT FOR: cc: Dee Garcia MD, Cabot L. MD Brown,Nik Arredondo MD ~ CC: Dee Yan DATE OF SERVICE: 01/12/2020 CHIEF COMPLAINT: Return of severe low back pain. HISTORY: The patient is a 64-year-old female who has been followed in the Pain Clinic. She suffers from lumbar radicular pain. She has undergone epidural steroid injections. She has gleaned about 80-90% improvement after the injections. She returns today indicating that her pain continues to be quite problematic. She is experiencing severe low back pain. This has interfered with her sleep. She has been stumbling a bit more. She feels that the left leg pain is causing more spasms. She has pain in the lower back. The right lower leg is most problematic. She also has some discomfort in the ankle. Rates her pain today as a 3/10. Notes that bending, lifting, and other activities of daily living worsen her discomfort. She notes more pain when she is bearing down. She feels her medications are somewhat helpful. She has been using ice packs. Immobility is beneficial as well. She has a number of family members who have of cancer. She has not had an MRI of her low back in about 7-8 years. She feels that her pain may be worsening and would like to have imaging of her back to note its trajectory. ALLERGIES: No known drug allergies. CURRENT MEDICATIONS: Hydrocodone 7.5 mg 1 p.o. b.i.d., Zanaflex 150 mg daily, omeprazole 40 mg, metformin 500 mg, bisoprolol/hydrochlorothiazide 37.5/25, losartan 40 mg, Align 4 mg. PAIN CLINIC ASSESSMENT/PQRS: 1. The patient has some osteoarthritic changes involving her back as well as she has had knee replacements on the right. She has some arthritic changes in her hands. She is not being treated for rheumatoid arthritis. 2. Height 5 feet 9 inches, weight 203 pounds, BMI is 30. 3. Vital signs: Blood pressure 113/67, pulse 72, respiratory rate 16, room air saturation 97%. 4. Pain intensity, 3/10. 5. Fall history: The patient tripped on an electrical cord. She noticed an increased discomfort in her left hip. She continues to have anterior thigh pain [address] [address] PAIN MANAGEMENT CONSULTATION Name: NIRMALA SHENJc Quiles Room #: REG [facility] Let[facility]#: [id number] Admission: 01/12/20 Attend Phys: Nik Yan MD Discharge: Date of : 53 Report #: [id number] on the left side. 6. Blood thinner. The patient is not on a blood thinning medication. 7. Hypertension. The patient is being treated for hypertension. 8. Opioids greater than 6 weeks. The patient receives medications from the Pain Clinic. 9. Risk assessment tool, low for opioid use. 10. Functional assessment tool, . 11. Recreational drug use. The patient denies. 12. Tobacco: The patient denies. 13. Alcohol: The patient denies. PHYSICAL EXAMINATION: GENERAL: The patient is a well-developed, well-nourished white female. Appears somewhat obese. She is alert and oriented x 3. Her affect is appropriate. Speech is fluent. HEENT: Normocephalic, atraumatic. Extraocular eye muscles intact. Sclerae nonicteric. Mucous membranes are moist. NECK: Without adenopathy or JVD. HEART: Regular rate. ABDOMEN: Nontender. EXTREMITIES: Upper extremity muscle strength is judged to be 5/5 for the major muscle groups in the upper extremity. The patient is without significant scoliosis, kyphosis or lordosis. The patient has pain and discomfort in the lower portion of her back. Has some pain that is radiating into the L4-L5 distribution. The patient has perception of some changes in the strength in her lower extremities, particularly on the right side. IMPRESSION: 1. Low back pain with history of radicular pain in L4-L5, which is improved with 80-90% after injections in the past. 2. Greater trochanteric bursitis. 3. History of depression and decompressive laminectomy. 4. History of sacroiliac joint dysfunction. 5. Diabetes. 6. Hypertension. RECOMMENDATIONS: We discussed treatment options with the patient. Risks and benefits of an epidural steroid injection were discussed. Possible complications of the procedure were reviewed. The COVID-[address] We explained to the patient that steroids can decrease one's immune function. She feels that her pain is quite problematic. She is having pain and discomfort, which keeps her from sleeping. She notes increased pain and discomfort when she turns in the bed. She also continues to have pain, which she feels is changing in character. She feels that an image of her back would be beneficial. We will have the patient undergo an MRI in the future. A script for this procedure will be provided. The patient will proceed today with an [facility] [address] [place] [address] PAIN MANAGEMENT CONSULTATION Name: MARCEL SHEN Room #: REG [facility].#: [id number] Admission: 01/12/20 Attend Phys: Nik Yan MD Discharge: Date of : 53 Report #: [id number] epidural steroid injection involving the L4-L5 area. PROCEDURE NOTE: The patient was taken to the procedure area. Risks and benefits of the procedure were discussed. They include but are not limited to infection, worsening pain, no improvement in pain, nerve damage, bleeding, worsening physical health, should the patient become infected by the coronavirus after steroid injection. She elects to proceed. The patient was assisted in getting on examination table. Her back was sterilely prepped with a Betadine solution at the L4-L5 interspace. A 17-gauge Tuohy with loss of resistance technique was used to gain access to the epidural space at L4-L5. This was after it had been infiltrated with 0.25% bupivacaine. A 17-gauge Tuohy was then advanced. There was no CSF, heme or paresthesia. Total of 80 mg Depo-Medrol, 40 mg triamcinolone and 2 mL of 0.25% bupivacaine were injected. The patient remained in the pain clinic for an appropriate amount of time. She will continue with her medications of hydrocodone 7.5 mg 1 p.o. b.i.d. to t.i.d. She will also continue with gabapentin 300 mg at bedtime. By: [id number] Nik Yan MD /alejandra
[2020-01-12 13:13] VITALS: BP 113/67
--- NOTE | 2020-01-12 13:37 | NUR ---
Pain Clinic Assessment: 1. History of Osteoarthritis: SPINE HANDS Right Lower Extremity Left Lower Extremity History of Rheumatoid Arthritis: Not Applicable 2. Height: 5 ft. 9 in. 175.3 cm. Weight: 203.0 lb. oz. 92.080 kg. Patient's BMI: 30.0 3. Vital Signs: BP: 113/67 Pulse: 72 Resp: 16 Temp: 02 Sat: 97 ECG Mon: 4. Pain Intensity: 3 5. Fall Risk: Dizziness: N Needs help standing or walking: N Fallen in the last 3 months: Y Fall risk comments: 6. Patient on Blood Thinner: None 7. History of Hypertension: Y 8. Opioid Therapy greater than 6 weeks: Y Opiate Contract Signed: 09/19/15 9. Risk Assessment Tool Provided: Opioid Risk Tool 10. Functional Assessment Tool: 11. Recreational Drug Use: Never Drug Type: Tobacco Use: Never Smoker Tobacco Type: Amount or Packs/day: How Many Years: Alcohol Use: Yes Frequency: Quant:
== END | disposition home or self-care (01) ==
LOC: PAIN 06:49
DX: M54.16 Radiculopathy, lumbar region (principal); G89.29 Other chronic pain; I10 Essential (primary) hypertension; E11.9 Type 2 diabetes mellitus without complications; Z98.890 Other specified postprocedural states; Z79.899 Other long term (current) drug therapy

== ENCOUNTER → 2020-02-04 | Outpatient (CLI) | payer OTHER ==
[~2020-02-04] VITALS: Ht 175.3 cm; Wt 93.3 kg
[2020-02-04 14:46] VITALS: BP 142/94
--- NOTE | 2020-02-04 14:54 | NUR ---
Pain Clinic Assessment: 1. History of Osteoarthritis: SPINE HANDS Right Lower Extremity Left Lower Extremity History of Rheumatoid Arthritis: Not Applicable 2. Height: 5 ft. 9 in. 175.3 cm. Weight: 205.8 lb. oz. 93.350 kg. Patient's BMI: 30.4 3. Vital Signs: BP: 142/94 Pulse: 76 Resp: 18 Temp: 02 Sat: 96 ECG Mon: 4. Pain Intensity: 4 5. Fall Risk: Dizziness: N Needs help standing or walking: N Fallen in the last 3 months: N Fall risk comments: 6. Patient on Blood Thinner: None 7. History of Hypertension: Y 8. Opioid Therapy greater than 6 weeks: Y Opiate Contract Signed: 09/19/15 9. Risk Assessment Tool Provided: Opioid Risk Tool 10. Functional Assessment Tool: 11. Recreational Drug Use: Never Drug Type: Tobacco Use: Never Smoker Tobacco Type: Amount or Packs/day: How Many Years: Alcohol Use: Yes Frequency: Quant:
--- NOTE | 2020-02-11 09:39 | HPC ---
[facility] [place] [address] PAIN MANAGEMENT CONSULTATION Name: MARCEL SHEN Room #: [facility].#: [id number] Admission: 02/04/20 Attend Phys: Nik Yan MD Discharge: Date of : 53 Report #: [id number] THIS REPORT FOR: cc: Dee Garcia MD, Cabot L. MD Brown,Nik Arredondo MD ~ CC: Dee Yan DATE OF SERVICE: 02/04/2020 CHIEF COMPLAINT: Severe low back pain. Pain improved after last injection, but I am still having pain down my left leg with numbness and tingling [id number]. HISTORY: The patient is a 64-year-old female who has been followed in the pain clinic because of lumbar radiculopathy. She underwent an epidural steroid injection. She noticed some improvement. She rates her pain as 4/10 at this point. She has returned for another injection. Her pain is exacerbated with activities of daily living such as lifting, bending, and bearing down. She has tried ice packs. Lying down and immobilization are helpful. She notes pain in the right leg, right foot with numbness as well as left leg, left ankle pain. She has had no complications from the last injection. She has returned today for another injection. ALLERGIES: No known drug allergies. CURRENT MEDICATIONS: Hydrocodone 7.5 mg 1 p.o. b.i.d., Zanaflex 150 mg daily, omeprazole 40 mg, metformin 500 mg, bisoprolol/hydrochlorothiazide 37.5/25, losartan 40 mg, and Align 4 mg. PAIN CLINIC ASSESSMENT AND PQRS: 1. The patient has pain and discomfort in the spine, hands, right lower extremity, left lower extremity. The patient is not being treated for rheumatoid arthritis. 2. Height 5 feet 9 inches, weight 205 pounds, BMI is 30. 3. Vital signs: Blood pressure 142/94, pulse 76, respiratory rate 18, room air saturation 96%. 4. Pain intensity 11/25. 5. Fall history: The patient has not fallen in the last 3 months. 6. Blood thinner. The patient is not on a blood thinning medication. 7. Hypertension. The patient is being treated for hypertension. 8. Opioids. The patient receives medications from her primary. 9. Risk assessment tool, low for opioid use. 10. Functional assessment tool . 11. Recreational drug use. [place] [address] PAIN MANAGEMENT CONSULTATION Name: MARCEL SHEN Room #: [facility]#: [id number] Admission: 02/04/20 Attend Phys: Nik Yan MD Discharge: Date of : 53 Report #: [id number] 12. Alcohol. The patient occasionally drinks alcoholic beverages. PHYSICAL EXAMINATION: GENERAL: The patient is a well-developed, well-nourished white female. Appears her stated age. She is alert and oriented x 3. Her affect is appropriate. Speech is fluent. HEENT: Normocephalic, atraumatic. Extraocular eye muscles intact. The patient is somewhat obese. NECK: Without adenopathy or JVD. HEART: Regular rate. ABDOMEN: Nontender. EXTREMITIES: Upper extremity muscle strength judged to be 5/5 for the major muscle groups in the upper extremity. The patient without significant scoliosis, kyphosis or lordosis. The patient has pain and discomfort in the lower portion of her back with pain that is radiating down into the left and right L4-L5 dermatomal distribution. She notes some aching, numbness, tingling and a sense of pressure in the lower extremities. IMPRESSION: 1. Low back pain with history of radiculopathy at L4-L5, which improved in the past by 80% -90% after epidural steroid injection. 2. Greater trochanteric bursitis history. 3. Has history of depression. 4. History of decompressive laminectomy. 5. History of sacroiliac joint dysfunction. 6. Diabetes. 7. Hypertension. RECOMMENDATIONS: We discussed treatment options with the patient. Risks and benefits of an epidural steroid injection were again discussed. Possible complications of the procedure, which could include, but are not limited to infection, worsening pain, no improvement in pain, nerve damage, increased sensitivity to Covid-19 because of lowering of one's immune system with use of steroids. The patient elects to proceed. PROCEDURE NOTE: The patient was taken to the procedure area. She was then assisted in getting on the examination table. Her back was sterilely prepped with a Betadine solution. A 0.25% bupivacaine was infiltrated at the L4-L5 interspace. There was no CSF, heme or paresthesia. Anterior, posterior as well as lateral viewing were implemented for correct placement. A total of 80 mg Depo-Medrol, 40 mg triamcinolone and 2 mL of 0.25% bupivacaine was injected. A total of 12 seconds fluoroscopy time was used. The patient's pain decreased to 0 at the time of discharge. She will follow up in the future as needed. A script for hydrocodone 7.5 mg 1 p.o. b.i.d. to t.i.d., total of 90 tablets have been provided. [address] [address] PAIN MANAGEMENT CONSULTATION Name: MARCEL SHEN Room #: [facility].#: [id number] Admission: 02/04/20 Attend Phys: Nik Yan MD Discharge: Date of : 53 Report #: [id number] We would like to thank you for letting us participate in her care. We hope she continues to improve. <ELECTRONICALLY SIGNED> By: Nik Yan MD 02/11/20 0939 [id number] Nik Yan MD /nt
== END | disposition home or self-care (01) ==
LOC: PAIN 06:51
PROVIDERS: ATTEND Anesthesiology Pain Medicine
DX: M54.16 Radiculopathy, lumbar region (principal); G89.29 Other chronic pain; Z98.890 Other specified postprocedural states; Z79.891 Long term (current) use of opiate analgesic

== ENCOUNTER → 2020-03-29 | Outpatient (CLI) | payer OTHER ==
[~2020-03-29] VITALS: Ht 175.3 cm; Wt 93.6 kg
[~2020-03-29] MED LIST changes: +NEURONTIN 300M300 M2 PO
[2020-03-29 13:36] VITALS: BP 135/74
--- NOTE | 2020-03-29 13:53 | NUR ---
Pain Clinic Assessment: 1. History of Osteoarthritis: SPINE HANDS Right Lower Extremity Left Lower Extremity History of Rheumatoid Arthritis: Not Applicable 2. Height: 5 ft. 9 in. 175.3 cm. Weight: 206.4 lb. oz. 93.623 kg. Patient's BMI: 30.5 3. Vital Signs: BP: 135/74 Pulse: 77 Resp: 18 Temp: 02 Sat: 98 ECG Mon: 4. Pain Intensity: 5 5. Fall Risk: Dizziness: N Needs help standing or walking: N Fallen in the last 3 months: N Fall risk comments: 6. Patient on Blood Thinner: None 7. History of Hypertension: Y 8. Opioid Therapy greater than 6 weeks: Y Opiate Contract Signed: 09/19/15 9. Risk Assessment Tool Provided: Opioid Risk Tool 10. Functional Assessment Tool: 11. Recreational Drug Use: Never Drug Type: Tobacco Use: Never Smoker Tobacco Type: Amount or Packs/day: How Many Years: Alcohol Use: Yes Frequency: Daily Quant: 1-2
== END | disposition home or self-care (01) ==
LOC: PAIN 06:59
PROVIDERS: ATTEND Anesthesiology Pain Medicine
DX: M54.16 Radiculopathy, lumbar region (principal); G89.29 Other chronic pain; Z98.890 Other specified postprocedural states; Z79.899 Other long term (current) drug therapy

== ENCOUNTER → 2020-07-07 | Outpatient (CLI) | payer OTHER ==
[~2020-07-07] VITALS: Ht 175.3 cm; Wt 94.8 kg
[~2020-07-07] MED LIST changes: +ACID REDUCER20 MG PO
[2020-07-07 09:07] VITALS: BP 119/68
--- NOTE | 2020-07-07 09:11 | NUR ---
Pain Clinic Assessment: 1. History of Osteoarthritis: SPINE HANDS Right Lower Extremity Left Lower Extremity History of Rheumatoid Arthritis: Not Applicable 2. Height: 5 ft. 9 in. 175.3 cm. Weight: 209.0 lb. oz. 94.802 kg. Patient's BMI: 30.8 3. Vital Signs: BP: 119/68 Pulse: 67 Resp: 16 Temp: 02 Sat: 97 ECG Mon: 4. Pain Intensity: 3 5. Fall Risk: Dizziness: N Needs help standing or walking: N Fallen in the last 3 months: N Fall risk comments: 6. Patient on Blood Thinner: None 7. History of Hypertension: Y 8. Opioid Therapy greater than 6 weeks: Y Opiate Contract Signed: 09/19/15 9. Risk Assessment Tool Provided: Opioid Risk Tool 10. Functional Assessment Tool: 11. Recreational Drug Use: Never Drug Type: Tobacco Use: Never Smoker Tobacco Type: Amount or Packs/day: How Many Years: Alcohol Use: Yes Frequency: Quant:
--- NOTE | 2020-07-10 16:03 | HPC ---
[facility] [place] [address] PAIN MANAGEMENT CONSULTATION Name: MARCEL SHEN Room #: [facility].#: [id number] Admission: 07/07/20 Attend Phys: Maida Michelle Discharge: Date of : 53 Report #: [id number] THIS REPORT FOR: cc: Dee Garcia MD, Cabot L. MD Hocker, Amanda CNS ~ CC: Maida Yan MD DATE OF SERVICE: 07/07/2020 CHIEF COMPLAINT: Lumbar radiculopathy and low back pain. HISTORY OF PRESENT ILLNESS: This is a 65-year-old female who is well known to the pain clinic returning today for medication refill. She reports that the epidural Dr. Yan performed in March was 80% beneficial for about 3 weeks and has slowly been declining. She is too early for an injection, so she has been taking a few extra pain pills. Dr. Yan usually prescribes 120 pills for her that last 2-3 months. Today, she is reporting a pain score of 3/10, but her pain does increase later in the day. It is a significant pressure in her lower back. The pain has been radiating down her left thigh to her knee at times, on the most painful days it can radiate to her foot. The patient reports pain is worse with activity, bending and lifting. She is getting ready to cook for the holidays and knows that she will need to be taking an average of 3 pain pills a day during this time. She has been considering surgery during this time. The patient reports medication as well as lying down are beneficial and denies constipation issues. The patient is considering surgery. She has spoken with the neurosurgeon, Dr. Guerrier, but is unsure if she would like to proceed. She was told she could not bend for 6 weeks. She believes that is not feasible for her to do until after the holiday season. We did discuss possible second opinion if she would like to speak with a different neurosurgeon as well. ALLERGIES: NEXIUM. CURRENT LIST OF MEDICATIONS: Pepcid, gabapentin, hydrocodone 7.5/325, trazodone, omeprazole, metformin, triamterene/hydrochlorothiazide, lovastatin PQRS: 1. The patient has arthritic changes in her hands, spine and lower extremities is not being treated for rheumatoid arthritis. 2. Height is 5 feet 9 inches, weight is 209, BMI is 30. 3. Vital signs 119/68, pulse is 67, respirations 16, oxygen sat is 97%. 4. Pain score is 3/10. [address] [address] PAIN MANAGEMENT CONSULTATION Name: MARCEL SHEN Room #: [facility].#: [id number] Admission: 07/07/20 Attend Phys: Maida Michelle Discharge: Date of : 53 Report #: [id number] 5. Denies dizziness, does not need help walking or standing, has not fallen in the last 3 months. 6. The patient is not on any blood thinners, but does take medicine for hypertension. 7. Opioid therapy is greater than 6 weeks; therefore, an opioid signed contract is on the chart. Risk assessment is low. Functional assessment is 47/70. 8. Recreational drug use, she denies. She is not a smoker and occasionally drinks alcohol. According to the prescription monitoring system, the patient is filling appropriately for her medications. PHYSICAL EXAMINATION: GENERAL: This is alert and orientated, well-developed, well-nourished white female, appearing her stated age, placing her current pain score at 3/10. Her speech is fluent. HEENT: Normocephalic, atraumatic. Extraocular eye muscles are intact. Mucous membranes are moist. She is wearing a mask. MUSCULOSKELETAL: She is without significant scoliosis, kyphosis or lordosis. She has discomfort in the lumbosacral region of her spine following the L4-L5 dermatomal distribution greater on the left. Her lower extremity strength is symmetrical at 5/5. IMPRESSION: 1. Low back pain with history of lumbar radiculopathy at the L4-L5. 2. History of greater trochanteric bursitis. 3. History of depression. 4. Previous decompression laminectomy. 5. Diabetes. 6. Hypertension. PLAN: 1. We discussed treatment options with the patient today. The patient reports that the epidurals are not as beneficial as they had been in the past. 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 I explained that this maybe cause of her most of her pain. Surgery may be the best option for her. She has seen Dr. Guerrier. I encouraged her if she would like a second opinion to seek that out in regards to the length of recovery after surgery. 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 She is worried about the restrictions of 6 weeks of no bending. I believe that surgery will be beneficial in helping with this significant increased pain that she has been experiencing over the past 7 months. 2. We will schedule her for a lumbar epidural within a month with Dr. Yan. She did obtain 80% relief, though it was short-lived and pain has returned after 3-[address] [address] PAIN MANAGEMENT CONSULTATION Name: MARCEL SHEN Room #: [facility]#: [id number] Admission: 07/07/20 Attend Phys: Maida Michelle Discharge: Date of : 53 Report #: [id number] 3. We will continue her on her hydrocodone 7.5/325. The patient takes 2-4 tablets a day depending on activity. The patient is seen today in collaboration with Dr. Yan. <ELECTRONICALLY SIGNED> By: Maida Michelle 07/10/20 1603 [id number] Maida Michelle /nt
== END ==
LOC: PAIN 06:56
PROVIDERS: ATTEND Clinical Nurse Specialist Adult Health
DX: M54.16 Radiculopathy, lumbar region (principal); E11.9 Type 2 diabetes mellitus without complications; I10 Essential (primary) hypertension; F32.9 Major depressive disorder, single episode, unspecified; Z79.891 Long term (current) use of opiate analgesic; Z79.899 Other long term (current) drug therapy

== ENCOUNTER → 2020-07-19 | Outpatient (CLI) | payer OTHER ==
[~2020-07-19] VITALS: Ht 175.3 cm; Wt 92.7 kg
[~2020-07-19] MED LIST changes: +AMITRIPTYLINE H10 M3 PO
[2020-07-19 14:04] VITALS: BP 132/82
--- NOTE | 2020-07-19 14:17 | NUR ---
Pain Clinic Assessment: 1. History of Osteoarthritis: SPINE HANDS Right Lower Extremity Left Lower Extremity History of Rheumatoid Arthritis: Not Applicable 2. Height: 5 ft. 9 in. 175.3 cm. Weight: 204.4 lb. oz. 92.715 kg. Patient's BMI: 30.2 3. Vital Signs: BP: 132/82 Pulse: 76 Resp: 16 Temp: 02 Sat: 98 ECG Mon: 4. Pain Intensity: 3 5. Fall Risk: Dizziness: N Needs help standing or walking: N Fallen in the last 3 months: N Fall risk comments: 6. Patient on Blood Thinner: None 7. History of Hypertension: Y 8. Opioid Therapy greater than 6 weeks: Y Opiate Contract Signed: 09/19/15 9. Risk Assessment Tool Provided: LOW-0 10. Functional Assessment Tool: 11. Recreational Drug Use: Never Drug Type: Tobacco Use: Never Smoker Tobacco Type: Amount or Packs/day: How Many Years: Alcohol Use: Yes Frequency: Weekly Quant: 2
== END | disposition home or self-care (01) ==
LOC: PAIN 06:50
PROVIDERS: ATTEND Anesthesiology Pain Medicine
DX: M54.16 Radiculopathy, lumbar region (principal); G89.29 Other chronic pain; I10 Essential (primary) hypertension; E11.9 Type 2 diabetes mellitus without complications; M19.90 Unspecified osteoarthritis, unspecified site; Z98.890 Other specified postprocedural states; Z79.899 Other long term (current) drug therapy; Z88.8 Allergy status to other drugs, medicaments and biological substances

== ENCOUNTER → 2020-10-06 | Outpatient (CLI) | payer OTHER ==
[~2020-10-06] VITALS: Ht 175.3 cm; Wt 95.0 kg
[~2020-10-06] MED LIST changes: +AMITRIPTYLINE H25 M2 PO
[2020-10-06 11:18] VITALS: BP 108/68
--- NOTE | 2020-10-06 11:52 | NUR ---
Pain Clinic Assessment: 1. History of Osteoarthritis: SPINE HANDS Right Lower Extremity Left Lower Extremity History of Rheumatoid Arthritis: Not Applicable 2. Height: 5 ft. 9 in. 175.3 cm. Weight: 209.4 lb. oz. 94.983 kg. Patient's BMI: 30.9 3. Vital Signs: BP: 108/68 Pulse: 69 Resp: 16 Temp: 02 Sat: 97 ECG Mon: 4. Pain Intensity: 2 5. Fall Risk: Dizziness: N Needs help standing or walking: N Fallen in the last 3 months: N Fall risk comments: 6. Patient on Blood Thinner: None 7. History of Hypertension: Y 8. Opioid Therapy greater than 6 weeks: Y Opiate Contract Signed: 09/19/15 9. Risk Assessment Tool Provided: LOW-0 10. Functional Assessment Tool: 11. Recreational Drug Use: Never Drug Type: Tobacco Use: Never Smoker Tobacco Type: Amount or Packs/day: How Many Years: Alcohol Use: Yes Frequency: Weekly Quant:
== END ==
LOC: PAIN 06:51
PROVIDERS: ATTEND Anesthesiology Pain Medicine
DX: M54.5 Low back pain (principal); E11.9 Type 2 diabetes mellitus without complications; I10 Essential (primary) hypertension; M96.1 Postlaminectomy syndrome, not elsewhere classified; F32.9 Major depressive disorder, single episode, unspecified; Z87.39 Personal history of other diseases of the musculoskeletal system and connective tissue; F10.10 Alcohol abuse, uncomplicated; Z88.8 Allergy status to other drugs, medicaments and biological substances; Z79.899 Other long term (current) drug therapy

== ENCOUNTER → 2020-10-18 | Outpatient (CLI) | payer OTHER ==
[~2020-10-18] VITALS: Ht 175.3 cm; Wt 94.7 kg
[2020-10-18 11:11] VITALS: BP 118/60
--- NOTE | 2020-10-18 11:17 | NUR ---
Pain Clinic Assessment: 1. History of Osteoarthritis: SPINE HANDS Right Lower Extremity Left Lower Extremity History of Rheumatoid Arthritis: Not Applicable 2. Height: 5 ft. 9 in. 175.3 cm. Weight: 208.8 lb. oz. 94.711 kg. Patient's BMI: 30.8 3. Vital Signs: BP: 118/60 Pulse: 72 Resp: 18 Temp: 02 Sat: 96 ECG Mon: 4. Pain Intensity: 3 5. Fall Risk: Dizziness: Y Needs help standing or walking: N Fallen in the last 3 months: N Fall risk comments: 6. Patient on Blood Thinner: None 7. History of Hypertension: Y 8. Opioid Therapy greater than 6 weeks: Y Opiate Contract Signed: 09/19/15 9. Risk Assessment Tool Provided: LOW-0 10. Functional Assessment Tool: 11. Recreational Drug Use: Never Drug Type: Tobacco Use: Never Smoker Tobacco Type: Amount or Packs/day: How Many Years: Alcohol Use: Yes Frequency: Weekly Quant: 1-2
== END | disposition home or self-care (01) ==
LOC: PAIN 06:44
PROVIDERS: ATTEND Anesthesiology Pain Medicine
DX: M54.5 Low back pain (principal); G89.29 Other chronic pain; I10 Essential (primary) hypertension; E11.9 Type 2 diabetes mellitus without complications; F32.9 Major depressive disorder, single episode, unspecified; Z98.890 Other specified postprocedural states; Z79.899 Other long term (current) drug therapy; Z98.41 Cataract extraction status, right eye; Z88.8 Allergy status to other drugs, medicaments and biological substances

== ENCOUNTER → 2021-01-31 | Outpatient (CLI) | payer OTHER ==
[~2021-01-31] VITALS: Ht 175.3 cm; Wt 94.9 kg
[2021-01-31 13:15] VITALS: BP 107/74
--- NOTE | 2021-01-31 13:29 | NUR ---
Pain Clinic Assessment: 1. History of Osteoarthritis: SPINE HANDS Right Lower Extremity Left Lower Extremity History of Rheumatoid Arthritis: Not Applicable 2. Height: 5 ft. 9 in. 175.3 cm. Weight: 209.2 lb. oz. 94.893 kg. Patient's BMI: 30.9 3. Vital Signs: BP: 107/74 Pulse: 72 Resp: 16 Temp: 02 Sat: 97 ECG Mon: 4. Pain Intensity: 6 5. Fall Risk: Dizziness: Y Needs help standing or walking: N Fallen in the last 3 months: N Fall risk comments: 6. Patient on Blood Thinner: None 7. History of Hypertension: Y 8. Opioid Therapy greater than 6 weeks: Y Opiate Contract Signed: 09/19/15 9. Risk Assessment Tool Provided: LOW-0 10. Functional Assessment Tool: 11. Recreational Drug Use: Never Drug Type: Tobacco Use: Never Smoker Tobacco Type: Amount or Packs/day: How Many Years: Alcohol Use: Yes Frequency: Weekly Quant: 3
== END | disposition home or self-care (01) ==
LOC: PAIN 08:05
PROVIDERS: ATTEND Anesthesiology Pain Medicine
DX: M54.16 Radiculopathy, lumbar region (principal); G89.29 Other chronic pain; I10 Essential (primary) hypertension; E11.9 Type 2 diabetes mellitus without complications; M19.90 Unspecified osteoarthritis, unspecified site; Z98.890 Other specified postprocedural states; Z79.899 Other long term (current) drug therapy; Z98.41 Cataract extraction status, right eye; Z88.8 Allergy status to other drugs, medicaments and biological substances

== ENCOUNTER → 2021-06-22 | Outpatient (CLI) | payer OTHER ==
[~2021-06-22] VITALS: Ht 175.3 cm; Wt 95.7 kg
[~2021-06-22] MED LIST changes: +ROXICODONE5 M2 PO
[2021-06-22 10:18] VITALS: BP 122/70
--- NOTE | 2021-06-22 10:40 | NUR ---
Pain Clinic Assessment: 1. History of Osteoarthritis: SPINE HANDS Right Lower Extremity Left Lower Extremity History of Rheumatoid Arthritis: Not Applicable 2. Height: 5 ft. 9 in. 175.3 cm. Weight: 211.0 lb. oz. 95.709 kg. Patient's BMI: 31.1 3. Vital Signs: BP: 122/70 Pulse: 70 Resp: 16 Temp: 02 Sat: 95 ECG Mon: 4. Pain Intensity: 4 5. Fall Risk: Dizziness: N Needs help standing or walking: N Fallen in the last 3 months: N Fall risk comments: 6. Patient on Blood Thinner: None 7. History of Hypertension: Y 8. Opioid Therapy greater than 6 weeks: Y Opiate Contract Signed: 09/19/15 9. Risk Assessment Tool Provided: LOW-0 10. Functional Assessment Tool: 11. Recreational Drug Use: Never Drug Type: Tobacco Use: Never Smoker Tobacco Type: Amount or Packs/day: How Many Years: Alcohol Use: Yes Frequency: Quant:
== END | disposition home or self-care (01) ==
LOC: PAIN 06:59
PROVIDERS: ATTEND Anesthesiology Pain Medicine
DX: M54.16 Radiculopathy, lumbar region (principal); G89.29 Other chronic pain; I10 Essential (primary) hypertension; E11.9 Type 2 diabetes mellitus without complications; M19.90 Unspecified osteoarthritis, unspecified site; Z98.890 Other specified postprocedural states; Z79.899 Other long term (current) drug therapy; Z88.8 Allergy status to other drugs, medicaments and biological substances

== ENCOUNTER → 2021-07-25 | Outpatient (CLI) | payer OTHER ==
[~2021-07-25] VITALS: Ht 175.3 cm; Wt 95.6 kg
[2021-07-25 10:52] VITALS: BP 129/80
--- NOTE | 2021-07-25 11:04 | NUR ---
Pain Clinic Assessment: 1. History of Osteoarthritis: SPINE HANDS Right Lower Extremity Left Lower Extremity History of Rheumatoid Arthritis: Not Applicable 2. Height: 5 ft. 9 in. 175.3 cm. Weight: 210.8 lb. oz. 95.618 kg. Patient's BMI: 31.1 3. Vital Signs: BP: 129/80 Pulse: 63 Resp: 16 Temp: 02 Sat: 100 ECG Mon: 4. Pain Intensity: 2 5. Fall Risk: Dizziness: N Needs help standing or walking: N Fallen in the last 3 months: N Fall risk comments: 6. Patient on Blood Thinner: None 7. History of Hypertension: Y 8. Opioid Therapy greater than 6 weeks: Y Opiate Contract Signed: 09/19/15 9. Risk Assessment Tool Provided: LOW-0 10. Functional Assessment Tool: 11. Recreational Drug Use: Never Drug Type: Tobacco Use: Never Smoker Tobacco Type: Amount or Packs/day: How Many Years: Alcohol Use: Yes Frequency: Special Occasions Quant: 1
== END | disposition home or self-care (01) ==
LOC: PAIN 07:02
PROVIDERS: ATTEND Anesthesiology Pain Medicine
DX: M54.59 Other low back pain (principal); G89.29 Other chronic pain; I10 Essential (primary) hypertension; E11.9 Type 2 diabetes mellitus without complications; Z98.890 Other specified postprocedural states; Z79.899 Other long term (current) drug therapy; Z88.0 Allergy status to penicillin; Z88.8 Allergy status to other drugs, medicaments and biological substances

== ENCOUNTER → 2021-08-29 | Outpatient (CLI) | payer OTHER ==
[~2021-08-29] VITALS: Ht 175.3 cm; Wt 93.1 kg
[2021-08-29 08:38] VITALS: BP 141/77
--- NOTE | 2021-08-29 08:48 | NUR ---
Pain Clinic Assessment: 1. History of Osteoarthritis: SPINE HANDS Right Lower Extremity Left Lower Extremity History of Rheumatoid Arthritis: Not Applicable 2. Height: 5 ft. 9 in. 175.3 cm. Weight: 205.2 lb. oz. 93.078 kg. Patient's BMI: 30.3 3. Vital Signs: BP: 141/77 Pulse: 72 Resp: 14 Temp: 02 Sat: 99 ECG Mon: 4. Pain Intensity: 6-9 5. Fall Risk: Dizziness: Y Needs help standing or walking: N Fallen in the last 3 months: N Fall risk comments: 6. Patient on Blood Thinner: None 7. History of Hypertension: Y 8. Opioid Therapy greater than 6 weeks: Y Opiate Contract Signed: 09/19/15 9. Risk Assessment Tool Provided: LOW-0 10. Functional Assessment Tool: 11. Recreational Drug Use: Never Drug Type: Tobacco Use: Never Smoker Tobacco Type: Amount or Packs/day: How Many Years: Alcohol Use: Yes Frequency: Quant:
== END | disposition home or self-care (01) ==
LOC: PAIN 07:02
PROVIDERS: ATTEND Anesthesiology Pain Medicine
DX: M54.16 Radiculopathy, lumbar region (principal); G89.29 Other chronic pain; I10 Essential (primary) hypertension; E11.9 Type 2 diabetes mellitus without complications; M19.90 Unspecified osteoarthritis, unspecified site; F32.9 Major depressive disorder, single episode, unspecified; Z98.890 Other specified postprocedural states; Z79.899 Other long term (current) drug therapy; Z20.822 Contact with and (suspected) exposure to COVID-19; Z98.41 Cataract extraction status, right eye; Z88.8 Allergy status to other drugs, medicaments and biological substances

== ENCOUNTER → 2021-09-05 | Outpatient (CLI) | payer OTHER ==
[~2021-09-05] VITALS: Ht 175.3 cm; Wt 91.4 kg
[~2021-09-05] MED LIST changes: +HYDROCODON-ACE1 EAC5 PO
[2021-09-05 10:44] VITALS: BP 155/84
--- NOTE | 2021-09-05 11:02 | NUR ---
Pain Clinic Assessment: 1. History of Osteoarthritis: SPINE HANDS Right Lower Extremity Left Lower Extremity History of Rheumatoid Arthritis: Not Applicable 2. Height: 5 ft. 9 in. 175.3 cm. Weight: 201.4 lb. oz. 91.355 kg. Patient's BMI: 29.7 3. Vital Signs: BP: 155/84 Pulse: 73 Resp: 16 Temp: 02 Sat: 100 ECG Mon: 4. Pain Intensity: 4-5 5. Fall Risk: Dizziness: N Needs help standing or walking: N Fallen in the last 3 months: N Fall risk comments: 6. Patient on Blood Thinner: None 7. History of Hypertension: Y 8. Opioid Therapy greater than 6 weeks: Y Opiate Contract Signed: 09/19/15 9. Risk Assessment Tool Provided: LOW-0 10. Functional Assessment Tool: 11. Recreational Drug Use: Never Drug Type: Tobacco Use: Never Smoker Tobacco Type: Amount or Packs/day: How Many Years: Alcohol Use: Yes Frequency: Quant:
== END ==
LOC: PAIN 06:59
PROVIDERS: ATTEND Anesthesiology Pain Medicine
DX: M47.819 Spondylosis without myelopathy or radiculopathy, site unspecified (principal); M19.042 Primary osteoarthritis, left hand; M19.041 Primary osteoarthritis, right hand; M19.09 Primary osteoarthritis, other specified site